=== PATIENT | female | born 1950 | race Caucasian/White ===

== ENCOUNTER 2021-09-11 10:07 | Emergency (ER) | payer MEDICARE ==
[2021-09-11 13:15] LABS: #Basophils 0.1 10x3/uL (0.0-0.2); #Eosinphils 0.4 10x3/uL (0.0-0.5); #Monocytes 0.7 10x3/uL (0.0-1.1); %Basophils 0.8 % (0.0-2.0); %Eosinophils 3.4 % (0.0-6.0); %Lymphocytes 19.4 % (18.0-47.0); %Monocytes 7.1 % (0.0-10.0); Hemoglobin 13.9 g/dL (12.0-15.5); Mean Corpuscular HGB CONC 32.8 g/dL (32.0-36.0); Mean Corpuscular Hemoglobin 28.1 pg (27.0-33.0); Mean Corpuscular Volume 85.8 fl (81.6-98.3); Mean Platelet Volume 9.7 fl (7.4-10.4); Platelet Count 254 10x3/uL (150-450); RBC Distribution Width 14.5 % (11.5-14.5); Red Blood Cell (RBC) Count 4.94 10x6/uL (3.90-5.03); White Blood Cell (WBC) Count 10.2 10x3/uL (3.5-10.5)
[2021-09-11 13:25] LABS: ALT (SGPT) 79 U/L (8-55); AST (SGOT) 70 U/L (5-34); Albumin 4.8 g/dL (3.4-4.8); Alkaline Phosphatase 65 U/L (40-110); Anion Gap 17 mmol/L (10-20); BUN (Urea Nitrogen) 30 mg/dL (9.8-20.1); Bilirubin, Total 0.4 mg/dL (0.2-1.2); Calc. Creatinine Clearance 0 mL/min (70-130); Calcium 10.4 mg/dL (7.8-10.44); Carbon Dioxide 24 mmol/L (23-31); Chloride 102 mmol/L (98-107); Globulin 2.6 g/dL (2.4-3.5); Glucose 98 mg/dL (83-110); Potassium 3.9 mmol/L (3.5-5.1); Protein, Total 7.4 g/dL (5.8-8.1); Sodium 139 mmol/L (136-145)
== END 2021-09-11 13:57 | disposition home or self-care (01) ==
LOC: CSHERS 10:07
DX: R20.2 Paresthesia of skin (principal); E11.9 Type 2 diabetes mellitus without complications; E03.9 Hypothyroidism, unspecified; I10 Essential (primary) hypertension; E78.5 Hyperlipidemia, unspecified
CPT/HCPCS: 70450; 80053; 84484; 85025; 93005

== ENCOUNTER 2023-11-09 12:05 | Emergency (ER) | payer MEDICARE ==
[2023-11-09] MEDS ORDERED: Morphine 4 MG/ML VIAL ONE (13:05)
[2023-11-09] MEDS ORDERED: Boostrix 0.5 ML (Tdap) VIAL (>/=7 yrs of age) ONE (13:06)
[2023-11-09] MEDS ORDERED: fentaNYL 50 mcg/mL 1 mL Vial ONE (13:06)
[2023-11-09] MEDS ORDERED: Ondansetron PF 4 MG/2 ML Vial ONE (13:16)
[2023-11-09] MEDS ORDERED: Lidocaine/Transparent Dressing 1 EACH KIT ONE (15:43)
[2023-11-09] MEDS ORDERED: Lidocaine 1% (PF) 30 ML VIAL ONE (15:43)
[2023-11-09] MEDS ORDERED: Ketorolac Tromethamine 30 MG (1 mL) VIAL ONE (15:43)
== END 2023-11-09 16:54 | disposition home or self-care (01) ==
LOC: CSHERS 12:05
DX: S00.83XA Contusion of other part of head, initial encounter (principal); S42.202A Unspecified fracture of upper end of left humerus, initial encounter for closed fracture; S81.012A Laceration without foreign body, left knee, initial encounter; E11.9 Type 2 diabetes mellitus without complications; I10 Essential (primary) hypertension; Z23 Encounter for immunization; W01.0XXA Fall on same level from slipping, tripping and stumbling without subsequent striking against object, initial encounter
CPT/HCPCS: 12002; 70450; 71045; 72125; 73060; 73100; 73564; 73630; 90471; 90715; 96374; 96375; 99284; J1885; J2001; J2405; J3010